=== PATIENT | female | born 1965 | race Caucasian/White ===

== ENCOUNTER 2022-07-10 12:16 | Emergency (ER) | payer BC ==
[~2022-07-10] VITALS: Ht 157.5 cm; Wt 64.4 kg
--- NOTE | 2022-07-10 12:28 | NUR ---
SEEN BY DR REGAN,WAITING FOR ORDERS
[2022-07-10] MEDS ORDERED: CYCLOBENZAPRINE 10 MG TABLET PO ONE (12:30)
[2022-07-10] MEDS ORDERED: KETOROLAC TROMETHAMINE INJ 60 MG/2 ML VIAL IM ONE (12:30)
[2022-07-10] MEDS ORDERED: KETOROLAC TROMETHAMINE INJ 30 MG/ML VIAL ONE (12:34)
[2022-07-10] MEDS ORDERED: CYCLOBENZAPRINE 10 MG TABLET ONE (12:35)
[2022-07-10] MEDS ORDERED: MORPHINE SULFATE INJ 4 MG/ML DISP.SYRIN ONE (13:59)
[2022-07-10] MEDS ORDERED: MORPHINE SULFATE INJ 2 MG/ML DISP.SYRIN IV ONE (14:00)
--- NOTE | 2022-07-10 14:20 | NUR ---
blood drawn and swab for covid19 sent to lab
[2022-07-10] MEDS ORDERED: ATENOLOL (14:23)
[2022-07-10 14:37] LABS: BASOPHILS # (AUTO) 0.1 K/uL (0.0-0.2); BASOPHILS % (AUTO) 0.5 % (0.0-2.0); EOSINOPHILS % (AUTO) 0.4 % (0.0-6.0); HEMATOCRIT 43 % (33-45); HEMOGLOBIN 13.9 g/dL (11.5-14.8); LYMPHOCYTES # (AUTO) 3.5 K/uL (0.8-4.8); LYMPHOCYTES % (AUTO) 23.6 % (20.0-44.0); MEAN CORPUSCULAR HGB CONC 32 g/dl (31.0-36.0); MEAN CORPUSCULAR VOLUME 87 fL (82-100); MONOCYTES # (AUTO) 0.5 K/uL (0.1-1.30); MONOCYTES % (AUTO) 3.5 % (2.0-12.0); NEUTROPHILS # (AUTO) 10.8 K/uL (1.8-8.9); PLATELET COUNT (AUTO) 283 K/uL (150-450); RED BLOOD CELL COUNT(AUTO) 4.94 MIL/uL (4.0-5.2)
--- NOTE | 2022-07-10 15:46 | NUR ---
[facility] [phone] REQUESTING FACE SHEET AND CLINICALS FAXED TO [phone]
--- NOTE | 2022-07-10 15:50 | NUR ---
FAX NOT GOING THROUGH.
[2022-07-10 16:16] LABS: CALCIUM, SERUM 9.4 mg/dL (8.5-10.1); CREATININE 0.7 mg/dL (0.6-1.3); POTASSIUM 4.3 mmol/L (3.5-5.1)
--- NOTE | 2022-07-10 16:55 | NUR ---
CALLED [facility] [phone] WAITING FOR BED ASSIGNMENT.
--- NOTE | 2022-07-10 18:42 | NUR ---
LISA CALLED FROM TRANSFER [facility] [phone] PT GOING TO ROOM [facility] UNDER DR. MAYO CALL [phone] FOR REPORT AND CALL BACK WITH
--- NOTE | 2022-07-10 18:48 | NUR ---
CALLED [facility] [phone] PER MARLA
--- NOTE | 2022-07-10 18:53 | NUR ---
[facility] CALLED FOR TRANSPORT ETA 90 MINS PER KAREN.
--- NOTE | 2022-07-10 19:15 | NUR ---
ATTEMPTED TO GIVE REPORT, NURSE GILES STILL BUSY, GIVE REPORT AFTER 30MINS
--- NOTE | 2022-07-10 19:47 | NUR ---
RECEIVED PATIENT LYING IN BED. AAOX4. ECUADOREAN SPEAKING. PATIENT CAME EARLIER WITH CC OF MECHANICAL FALL SUSTAINING A THORACIC SPINE FX AND GX OF LUMBAR SPINE. PATIENT FOR ADMISSION AT [facility] UNDER DR LUCAS. PATIENT HAS PERIPHERAL LINE ON RIGHT HAND G22. PAIN SCALE OF 3/10. PATIENT IS ATTACHED TO MONITOR. VITALS CHECKED
--- NOTE | 2022-07-10 20:15 | NUR ---
REPORT GIVEN TO CRYS SKAGGS OF [facility]. TO TABITHA OROZCO OF [facility] [address]. PATIENT IS BEING PREPARED FOR TRANSPORT.
--- NOTE | 2022-07-10 20:25 | NUR ---
PATIENT WILL BE TRANSPORTED TO [facility] VIA [facility].
[2022-07-10 20:36] VITALS: BP 179/97
--- NOTE | 2022-07-10 20:36 | NUR ---
Patient discharged to home in stable condition. Written and verbal after care instructions given. Patient verbalizes understanding of instruction.
--- NOTE | 2022-07-10 20:36 | NUR ---
Addendum: The patient was not discharged home The patient was transferred to [facility] for higher level of care
== END 2022-07-10 20:37 | disposition short-term general hospital (02) ==
LOC: ER 12:28
DX: S32.018A Other fracture of first lumbar vertebra, initial encounter for closed fracture (principal); S22.089A Unspecified fracture of T11-T12 vertebra, initial encounter for closed fracture; W11.XXXA Fall on and from ladder, initial encounter; Y93.E9 Activity, other interior property and clothing maintenance; Y92.019 Unspecified place in single-family (private) house as the place of occurrence of the external cause; Z20.822 Contact with and (suspected) exposure to COVID-19; I10 Essential (primary) hypertension
CPT/HCPCS: 99285; 72131; 96374; 87426; 96372; 72128; 85025; 80048; 36415; J2270; J1885; C9803